=== PATIENT | male | born 1955 | race Caucasian/White ===

== ENCOUNTER → 2020-05-25 | Outpatient (CLI) | payer BC, MEDICARE ==
[2020-05-25 09:43] LABS: HEMATOCRIT 47.4 % (42.0-52.0); HEMOGLOBIN 17.4 g/dL (13.5-18.0)
== END ==
LOC: LAB 09:24
PROVIDERS: Urology
DX: G47.00 Insomnia, unspecified (principal); R53.83 Other fatigue; R68.82 Decreased libido